=== PATIENT | male | born 1965 | race Caucasian/White ===

== ENCOUNTER → 2016-07-03 | Outpatient (CLI) | payer OTHER ==
[~2016-07-03] MED LIST: SODIUM CHLORIDE 0.9% 250 ML in EMPTY BAG 1 BAG IV PRN; SODIUM CHLORIDE 0.9% 500 ML in EMPTY BAG 1 BAG IV PRN
[2016-07-03 11:38] VITALS: TEMP 98
[2016-07-03 13:00] LABS: CH 32.5; CHCM 33.7; HCT 52.6 % (39.0-53.0); HDW 2.34; HGB 17.6 gm/dL (13.0-17.5); MCH 32.4 pg (25.0-35.0); MCHC 33.4 g/dL (31.0-37.0); MCV 96.9 fL (80.0-100.0); Mean Platelet Volume 6.5; RBC 5.43 m/uL (4.30-5.90); RDW 12.6 % (11.5-15.5); WBC 7.8 k/uL (3.8-10.6)
[2016-07-03 13:40] VITALS: BP 146/93; PULSE 93; RESP 16
== END | disposition home or self-care (01) ==
LOC: PROCWHC3 11:17
PROVIDERS: ATTEND Physician Assistant
DX: E83.119 Hemochromatosis, unspecified (principal)
CPT/HCPCS: 36415; 85027; 99195

== ENCOUNTER → 2016-10-06 | Outpatient (CLI) | payer OTHER ==
[2016-10-06 11:35] VITALS: TEMP 98.1
[2016-10-06 11:37] LABS: CH 32.1; CHCM 33.9; HCT 46.5 % (39.0-53.0); HDW 2.35; MCH 32.7 pg (25.0-35.0); MCHC 34.5 g/dL (31.0-37.0); MCV 94.8 fL (80.0-100.0); Mean Platelet Volume 6.9; RDW 12.6 % (11.5-15.5); WBC 7.4 k/uL (3.8-10.6)
[2016-10-06 12:18] VITALS: BP 137/82; PULSE 75; RESP 16
== END ==
LOC: PROCWHC3 10:59
PROVIDERS: ATTEND Physician Assistant
DX: E83.119 Hemochromatosis, unspecified (principal)
CPT/HCPCS: 85027; 99195

== ENCOUNTER → 2017-01-05 | Outpatient (CLI) | payer OTHER ==
[~2017-01-05] MED LIST changes: -SODIUM CHLORIDE 0.9% 250 ML in EMPTY BAG 1 BAG IV PRN
[2017-01-05 11:21] VITALS: BP 142/90; PULSE 86; RESP 16; TEMP 98.4
[2017-01-05 11:55] LABS: CH 33.3; CHCM 34.2; HCT 50.9 % (39.0-53.0); HDW 2.36; MCH 32.6 pg (25.0-35.0); MCHC 33.3 g/dL (31.0-37.0); MCV 97.7 fL (80.0-100.0); Mean Platelet Volume 7.4; RBC 5.21 m/uL (4.30-5.90); RDW 13.5 % (11.5-15.5); WBC 7.6 k/uL (3.8-10.6)
== END ==
LOC: PROCWHC3 11:05
PROVIDERS: ATTEND Physician Assistant
DX: E83.110 Hereditary hemochromatosis (principal)
CPT/HCPCS: 36415; 85027; 99195

== ENCOUNTER → 2017-04-18 | Outpatient (CLI) | payer OTHER ==
[2017-04-18 10:18] VITALS: BP 156/82; PULSE 80; RESP 16; TEMP 97.7
[2017-04-18 10:33] LABS: CH 32.3; CHCM 33.1; HCT 49.6 % (39.0-53.0); HDW 2.16; HGB 16.5 gm/dL (13.0-17.5); MCH 32.6 pg (25.0-35.0); MCHC 33.3 g/dL (31.0-37.0); Mean Platelet Volume 7.5; RBC 5.06 m/uL (4.30-5.90); RDW 13.8 % (11.5-15.5); WBC 6.8 k/uL (3.8-10.6)
== END ==
LOC: PROCWHC3 09:51
PROVIDERS: ATTEND Physician Assistant
DX: E83.119 Hemochromatosis, unspecified (principal)
CPT/HCPCS: 36415; 85027; 99195

== ENCOUNTER → 2017-08-03 | Outpatient (CLI) | payer OTHER ==
[2017-08-03 11:33] VITALS: RESP 16; TEMP 97.6
[2017-08-03 11:41] LABS: Basophils # (A) 0.1 k/uL (0-0.2); Basophils % (A) 1 %; Eosinophils # (A) 0.3 k/uL (0-0.7); Eosinophils % (A) 4 %; HCT 48.4 % (39.0-53.0); HGB 16.2 gm/dL (13.0-17.5); Lymphocytes # (A) 2.1 k/uL (1.0-4.8); Lymphocytes % (A) 29 %; MCH 31.4 pg (25.0-35.0); MCHC 33.5 g/dL (31.0-37.0); MCV 93.8 fL (80.0-100.0); Monocytes # (A) 0.3 k/uL (0-1.0); Monocytes % (A) 4 %; Neutrophils # (A) 4.4 k/uL (1.3-7.7); Neutrophils % (A) 61 %; Platelet Count 254 k/uL (150-450); RBC 5.16 m/uL (4.30-5.90); RDW 12.7 % (11.5-15.5); WBC 7.2 k/uL (3.8-10.6)
[2017-08-03 12:31] VITALS: BP 145/94; PULSE 97
== END | disposition home or self-care (01) ==
LOC: PROCWHC3 11:21
PROVIDERS: ATTEND Physician Assistant
DX: E83.110 Hereditary hemochromatosis (principal)
CPT/HCPCS: 36415; 85025; 99195

== ENCOUNTER → 2017-11-09 | Outpatient (CLI) | payer OTHER ==
[2017-11-09 11:22] VITALS: RESP 16; TEMP 98.1
[2017-11-09 11:32] LABS: Basophils # (A) 0.1 k/uL (0-0.2); Basophils % (A) 1 %; Eosinophils # (A) 0.6 k/uL (0-0.7); Eosinophils % (A) 7 %; HCT 47.9 % (39.0-53.0); HGB 16.6 gm/dL (13.0-17.5); Lymphocytes # (A) 2.2 k/uL (1.0-4.8); Lymphocytes % (A) 30 %; MCH 32.7 pg (25.0-35.0); MCHC 34.6 g/dL (31.0-37.0); MCV 94.5 fL (80.0-100.0); Mean Platelet Volume 6.9; Monocytes # (A) 0.4 k/uL (0-1.0); Monocytes % (A) 5 %; Neutrophils # (A) 4.2 k/uL (1.3-7.7); Neutrophils % (A) 56 %; Platelet Count 215 k/uL (150-450); RBC 5.07 m/uL (4.30-5.90); RDW 12.4 % (11.5-15.5); WBC 7.5 k/uL (3.8-10.6)
[2017-11-09 12:36] VITALS: BP 131/93; PULSE 91
[2017-11-09 17:13] LABS: Iron Saturation 88.43 (15.00-50.00)
== END | disposition home or self-care (01) ==
LOC: PROCWHC3 11:00
PROVIDERS: ATTEND Physician Assistant
DX: E83.110 Hereditary hemochromatosis (principal)
CPT/HCPCS: 36415; 83540; 83550; 85025; 99195

== ENCOUNTER → 2018-02-15 | Outpatient (CLI) | payer OTHER ==
[2018-02-15 11:43] VITALS: BP 134/94; PULSE 76; RESP 16; TEMP 98.1
[2018-02-15 11:43] LABS: HCT 49.3 % (39.0-53.0); HGB 16.6 gm/dL (13.0-17.5); MCH 31.7 pg (25.0-35.0); MCHC 33.5 g/dL (31.0-37.0); MCV 94.3 fL (80.0-100.0); Mean Platelet Volume 6.9; Platelet Count 261 k/uL (150-450); RBC 5.23 m/uL (4.30-5.90); RDW 12.2 % (11.5-15.5)
[2018-02-15 16:53] LABS: Iron Saturation 71.3 (15.00-50.00)
== END | disposition home or self-care (01) ==
LOC: PROCWHC3 10:45
PROVIDERS: ATTEND Physician Assistant
DX: E83.110 Hereditary hemochromatosis (principal)
CPT/HCPCS: 36415; 82728; 83540; 83550; 85027; 99195

== ENCOUNTER → 2018-06-11 | Outpatient (CLI) | payer OTHER ==
[2018-06-11 11:28] VITALS: RESP 16; TEMP 97.4
[2018-06-11 11:54] LABS: HCT 48.2 % (39.0-53.0); HGB 16.1 gm/dL (13.0-17.5); MCH 31.5 pg (25.0-35.0); MCHC 33.3 g/dL (31.0-37.0); MCV 94.7 fL (80.0-100.0); Platelet Count 245 k/uL (150-450); RBC 5.09 m/uL (4.30-5.90); RDW 12.8 % (11.5-15.5); WBC 7.4 k/uL (3.8-10.6)
[2018-06-11 12:29] VITALS: BP 146/89; PULSE 80
[2018-06-11 17:55] LABS: Iron Saturation 57.44 (15.00-50.00)
== END ==
LOC: PROCWHC3 11:16
PROVIDERS: ATTEND Physician Assistant
DX: E83.110 Hereditary hemochromatosis (principal)
CPT/HCPCS: 36415; 82728; 83540; 83550; 85027; 99195

== ENCOUNTER → 2018-09-13 | Outpatient (CLI) | payer OTHER ==
[~2018-09-13] MED LIST changes: +SODIUM CHLORIDE 0.9% 500 ML 500 ML in EMPTY BAG 1 BAG IV PRN; -SODIUM CHLORIDE 0.9% 500 ML in EMPTY BAG 1 BAG IV PRN
[2018-09-13 11:04] VITALS: RESP 18; TEMP 97.7
[2018-09-13 11:13] LABS: HCT 48.3 % (39.0-53.0); HGB 15.9 gm/dL (13.0-17.5); MCH 31.3 pg (25.0-35.0); MCHC 32.9 g/dL (31.0-37.0); Mean Platelet Volume 6.7; Platelet Count 258 k/uL (150-450); RBC 5.08 m/uL (4.30-5.90); RDW 12.6 % (11.5-15.5); WBC 6.7 k/uL (3.8-10.6)
[2018-09-13 12:03] VITALS: BP 130/88; PULSE 83
[2018-09-13 17:44] LABS: Iron Saturation 53.81 (15.00-50.00)
== END | disposition home or self-care (01) ==
LOC: PROCWHC3 10:50
PROVIDERS: ATTEND Physician Assistant
DX: E83.110 Hereditary hemochromatosis (principal)
CPT/HCPCS: 36415; 82728; 83540; 83550; 85027; 99195

== ENCOUNTER → 2018-12-13 | Outpatient (CLI) | payer OTHER ==
[2018-12-13 11:29] VITALS: RESP 16; TEMP 98.2
[2018-12-13 11:38] LABS: HGB 16.1 gm/dL (13.0-17.5); MCH 31.7 pg (25.0-35.0); MCHC 32.9 g/dL (31.0-37.0); MCV 96.5 fL (80.0-100.0); Mean Platelet Volume 7.1; Platelet Count 240 k/uL (150-450); RBC 5.08 m/uL (4.30-5.90)
[2018-12-13 13:28] VITALS: BP 133/87; PULSE 87
[2018-12-13 23:30] LABS: Iron Saturation 69.33 (15.00-50.00)
== END ==
LOC: PROCWHC3 10:59
PROVIDERS: ATTEND Physician Assistant
DX: E83.119 Hemochromatosis, unspecified (principal)
CPT/HCPCS: 36415; 83540; 83550; 85027; 99195

== ENCOUNTER → 2019-02-14 | Outpatient (CLI) | payer OTHER ==
[2019-02-14 11:22] VITALS: RESP 16; TEMP 98.3
[2019-02-14 11:35] LABS: HCT 44.3 % (39.0-53.0); HGB 15.7 gm/dL (13.0-17.5); MCH 32.4 pg (25.0-35.0); MCHC 35.5 g/dL (31.0-37.0); Mean Platelet Volume 5.8; Platelet Count 228 k/uL (150-450); RBC 4.86 m/uL (4.30-5.90); RDW 12.3 % (11.5-15.5); WBC 7.8 k/uL (3.8-10.6)
[2019-02-14 12:16] VITALS: BP 134/84; PULSE 87
== END | disposition home or self-care (01) ==
LOC: PROCWHC3 09:04
PROVIDERS: ATTEND Physician Assistant
DX: E83.110 Hereditary hemochromatosis (principal)
CPT/HCPCS: 36415; 85027; 99195

== ENCOUNTER → 2019-04-11 | Outpatient (CLI) | payer OTHER ==
[2019-04-11 11:12] VITALS: RESP 16; TEMP 98.2
[2019-04-11 11:26] LABS: HCT 48.1 % (39.0-53.0); HGB 16.3 gm/dL (13.0-17.5); MCHC 33.8 g/dL (31.0-37.0); Mean Platelet Volume 6.1; Platelet Count 249 k/uL (150-450); RBC 4.94 m/uL (4.30-5.90); RDW 12.3 % (11.5-15.5)
[2019-04-11 11:29] LABS: MCV 97.4 fL (80.0-100.0)
[2019-04-11 12:14] VITALS: BP 144/90; PULSE 87
[2019-04-11 16:27] LABS: % Iron Saturation 29.63 (15.00-50.00)
== END ==
LOC: PROCWHC3 10:58
PROVIDERS: ATTEND Physician Assistant
DX: E83.110 Hereditary hemochromatosis (principal)
CPT/HCPCS: 36415; 83540; 83550; 85027; 99195

== ENCOUNTER → 2019-08-08 | Outpatient (CLI) | payer OTHER ==
[2019-08-08 12:06] VITALS: PULSE 79; RESP 16; TEMP 98.2
[2019-08-08 12:24] LABS: HCT 47.2 % (39.0-53.0); HGB 15.9 gm/dL (13.0-17.5); MCH 31.8 pg (25.0-35.0); MCHC 33.7 g/dL (31.0-37.0); MCV 94.4 fL (80.0-100.0); Mean Platelet Volume 7.2; Platelet Count 253 k/uL (150-450); RBC 5.01 m/uL (4.30-5.90); RDW 12.6 % (11.5-15.5); WBC 7.7 k/uL (3.8-10.6)
[2019-08-08 13:20] VITALS: BP 111/78
[2019-08-08 19:08] LABS: % Iron Saturation 40.89 (15.00-50.00)
== END | disposition home or self-care (01) ==
LOC: PROCWHC3 11:13
PROVIDERS: ATTEND Physician Assistant
DX: E83.110 Hereditary hemochromatosis (principal)
CPT/HCPCS: 83540; 83550; 85027; 99195

== ENCOUNTER → 2019-10-10 | Outpatient (CLI) | payer OTHER ==
[2019-10-10 11:02] VITALS: RESP 16; TEMP 98.6
[2019-10-10 12:10] LABS: HCT 50.2 % (39.0-53.0); HGB 16.5 gm/dL (13.0-17.5); MCH 31.6 pg (25.0-35.0); MCHC 32.9 g/dL (31.0-37.0); MCV 95.9 fL (80.0-100.0); Platelet Count 250 k/uL (150-450); RBC 5.23 m/uL (4.30-5.90); RDW 12.4 % (11.5-15.5); WBC 8.6 k/uL (3.8-10.6)
[2019-10-10 12:44] VITALS: BP 136/81; PULSE 70
[2019-10-10 19:50] LABS: % Iron Saturation 47.88 (15.00-50.00)
== END | disposition home or self-care (01) ==
LOC: PROCWHC3 10:48
PROVIDERS: ATTEND Physician Assistant
DX: E83.110 Hereditary hemochromatosis (principal)
CPT/HCPCS: 36415; 83540; 83550; 85027; 99195

== ENCOUNTER → 2019-12-05 | Outpatient (CLI) | payer OTHER ==
[2019-12-05 11:08] VITALS: RESP 18; TEMP 97.9
[2019-12-05 11:54] LABS: HGB 15.7 gm/dL (13.0-17.5); MCHC 32.7 g/dL (31.0-37.0); MCV 94.7 fL (80.0-100.0); Mean Platelet Volume 7.3; Platelet Count 246 k/uL (150-450); RBC 5.07 m/uL (4.30-5.90); RDW 12.4 % (11.5-15.5)
[2019-12-05 12:32] VITALS: BP 147/76; PULSE 115
[2019-12-05 21:00] LABS: % Iron Saturation 66.27 (15.00-50.00)
== END | disposition home or self-care (01) ==
LOC: PROCWHC3 10:52
PROVIDERS: ATTEND Physician Assistant
DX: E83.110 Hereditary hemochromatosis (principal)
CPT/HCPCS: 36415; 83540; 83550; 85027; 99195

== ENCOUNTER → 2020-01-30 | Outpatient (CLI) | payer OTHER ==
[2020-01-30 11:03] VITALS: PULSE 86; RESP 16
[2020-01-30 11:17] LABS: Basophils # (A) 0.2 k/uL (0-0.2); Basophils % (A) 2 %; Eosinophils # (A) 0.4 k/uL (0-0.7); Eosinophils % (A) 4 %; HCT 50.6 % (39.0-53.0); HGB 16.7 gm/dL (13.0-17.5); Lymphocytes # (A) 2.6 k/uL (1.0-4.8); Lymphocytes % (A) 30 %; MCV 93.9 fL (80.0-100.0); Mean Platelet Volume 7.4; Monocytes # (A) 0.3 k/uL (0-1.0); Monocytes % (A) 4 %; Neutrophils % (A) 59 %; Platelet Count 271 k/uL (150-450); RBC 5.38 m/uL (4.30-5.90); RDW 12.6 % (11.5-15.5); WBC 8.6 k/uL (3.8-10.6)
[2020-01-30 11:48] VITALS: BP 146/86; TEMP 98.1
[2020-01-30 16:40] LABS: % Iron Saturation 28.25 (15.00-50.00)
[2020-01-30 16:48] LABS: Ferritin 25.5 ng/mL (22.0-322.0)
== END | disposition home or self-care (01) ==
LOC: PROCWHC3 10:50
PROVIDERS: ATTEND Physician Assistant
DX: E83.119 Hemochromatosis, unspecified (principal)
CPT/HCPCS: 36415; 82728; 83540; 83550; 85025; 99195

== ENCOUNTER → 2020-04-23 | Outpatient (CLI) | payer OTHER ==
[2020-04-23 11:13] VITALS: RESP 16; TEMP 98.4
[2020-04-23 11:26] LABS: HCT 49.1 % (39.0-53.0); HGB 16.2 gm/dL (13.0-17.5); MCH 30.6 pg (25.0-35.0); MCV 92.8 fL (80.0-100.0); Mean Platelet Volume 7.3; Platelet Count 240 k/uL (150-450); RBC 5.29 m/uL (4.30-5.90); RDW 12.7 % (11.5-15.5); WBC 8.5 k/uL (3.8-10.6)
[2020-04-23 12:11] VITALS: BP 161/79; PULSE 92
[2020-04-23 21:02] LABS: % Iron Saturation 60.73 (15.00-50.00)
== END | disposition home or self-care (01) ==
LOC: PROCWHC3 10:56
PROVIDERS: ATTEND Physician Assistant
DX: E83.119 Hemochromatosis, unspecified (principal)
CPT/HCPCS: 36415; 83540; 83550; 85027; 99195

== ENCOUNTER → 2020-07-23 | Outpatient (CLI) | payer OTHER ==
[2020-07-23 11:05] VITALS: RESP 18; TEMP 98.4
[2020-07-23 11:20] LABS: HCT 46.8 % (39.0-53.0); HGB 16.3 gm/dL (13.0-17.5); MCH 32.5 pg (25.0-35.0); MCHC 34.8 g/dL (31.0-37.0); MCV 93.6 fL (80.0-100.0); Mean Platelet Volume 6.8; Platelet Count 249 k/uL (150-450); RDW 12.4 % (11.5-15.5)
[2020-07-23 12:16] VITALS: BP 148/103; PULSE 76
[2020-07-24 00:46] LABS: % Iron Saturation 33.47 (15.00-50.00)
[2020-07-24 00:54] LABS: Ferritin 46.8 ng/mL (22.0-322.0)
== END ==
LOC: PROCWHC3 10:52
PROVIDERS: ATTEND Physician Assistant
DX: E83.110 Hereditary hemochromatosis (principal); F17.210 Nicotine dependence, cigarettes, uncomplicated
CPT/HCPCS: 36415; 82728; 83540; 83550; 85027; 99195

== ENCOUNTER → 2020-10-29 | Outpatient (CLI) | payer OTHER ==
[2020-10-29 11:39] LABS: HCT 48.6 % (39.0-53.0); HGB 16.6 gm/dL (13.0-17.5); MCH 31.8 pg (25.0-35.0); MCHC 34.2 g/dL (31.0-37.0); MCV 93.1 fL (80.0-100.0); Platelet Count 230 k/uL (150-450); RBC 5.22 m/uL (4.30-5.90); RDW 12.3 % (11.5-15.5); WBC 7.9 k/uL (3.8-10.6)
[2020-10-29 12:05] VITALS: PULSE 80; RESP 16; TEMP 98.2
[2020-10-29 12:07] VITALS: BP 137/88
[2020-10-29 17:40] LABS: % Iron Saturation 34.12 (15.00-50.00)
[2020-10-29 17:48] LABS: Ferritin 47.9 ng/mL (22.0-322.0)
== END ==
LOC: PROCWHC3 10:56
PROVIDERS: ATTEND Physician Assistant
DX: E83.110 Hereditary hemochromatosis (principal); Z87.891 Personal history of nicotine dependence
CPT/HCPCS: 36415; 82728; 83540; 83550; 85027; 99195

== ENCOUNTER → 2021-02-04 | Outpatient (CLI) | payer OTHER ==
[2021-02-04 11:23] VITALS: TEMP 98.4
[2021-02-04 11:26] LABS: HCT 46.5 % (39.0-53.0); HGB 15.8 gm/dL (13.0-17.5); MCH 32.5 pg (25.0-35.0); MCHC 34.1 g/dL (31.0-37.0); MCV 95.5 fL (80.0-100.0); Mean Platelet Volume 7.4; Platelet Count 249 k/uL (150-450); RBC 4.87 m/uL (4.30-5.90); RDW 12.2 % (11.5-15.5); WBC 7.9 k/uL (3.8-10.6)
[2021-02-04 11:49] VITALS: BP 148/106; PULSE 87; RESP 16
== END ==
LOC: PROCWHC3 11:16
PROVIDERS: ATTEND Internal Medicine Gastroenterology
DX: E83.110 Hereditary hemochromatosis (principal); Z87.891 Personal history of nicotine dependence
CPT/HCPCS: 36415; 85027; 99195

== ENCOUNTER → 2021-09-23 | Outpatient (CLI) | payer OTHER ==
[2021-09-23 11:08] VITALS: RESP 18; TEMP 98.1
[2021-09-23 11:21] LABS: MCH 31.8 pg (25.0-35.0); MCHC 32.7 g/dL (31.0-37.0); MCV 97.3 fL (80.0-100.0); Mean Platelet Volume 7.5; Platelet Count 245 k/uL (150-450); RBC 4.73 m/uL (4.30-5.90); RDW 12.8 % (11.5-15.5); WBC 7.4 k/uL (3.8-10.6)
[2021-09-23 11:51] VITALS: BP 173/84; PULSE 92
== END | disposition home or self-care (01) ==
LOC: PROCWHC3 10:50
PROVIDERS: ATTEND Internal Medicine Gastroenterology
DX: E83.110 Hereditary hemochromatosis (principal)
CPT/HCPCS: 36415; 85027; 99195

== ENCOUNTER → 2022-01-31 | Outpatient (CLI) | payer OTHER ==
[2022-01-31 11:12] VITALS: PULSE 78; RESP 15; TEMP 98.4
[2022-01-31 11:34] LABS: HCT 44.8 % (39.0-53.0); HGB 14.6 gm/dL (13.0-17.5); MCH 31.2 pg (25.0-35.0); MCHC 32.5 g/dL (31.0-37.0); MCV 95.9 fL (80.0-100.0); Mean Platelet Volume 7.5; Platelet Count 239 k/uL (150-450); RBC 4.68 m/uL (4.30-5.90); RDW 12.6 % (11.5-15.5); WBC 7.8 k/uL (3.8-10.6)
[2022-01-31 13:02] VITALS: BP 161/101
== END ==
LOC: PROCWHC3 10:55
PROVIDERS: ATTEND Internal Medicine Gastroenterology
DX: E83.110 Hereditary hemochromatosis (principal); Z87.891 Personal history of nicotine dependence
CPT/HCPCS: 36415; 85027; 99195

== ENCOUNTER → 2022-05-16 | Outpatient (CLI) | payer OTHER ==
[2022-05-16 11:12] VITALS: RESP 16; TEMP 97.5
[2022-05-16 11:14] LABS: HCT 47.2 % (39.0-53.0); HGB 16.2 gm/dL (13.0-17.5); MCH 31.9 pg (25.0-35.0); MCHC 34.4 g/dL (31.0-37.0); MCV 92.5 fL (80.0-100.0); Mean Platelet Volume 7.8; Platelet Count 246 k/uL (150-450); RDW 12.4 % (11.5-15.5); WBC 8.5 k/uL (3.8-10.6)
[2022-05-16 11:45] VITALS: BP 151/84; PULSE 98
== END ==
LOC: PROCWHC3 10:58
PROVIDERS: ATTEND Internal Medicine Gastroenterology
DX: E83.119 Hemochromatosis, unspecified (principal); Z87.891 Personal history of nicotine dependence
CPT/HCPCS: 36415; 85027; 99195

== ENCOUNTER → 2022-08-04 | Outpatient (CLI) | payer OTHER ==
[2022-08-04 11:05] VITALS: RESP 16; TEMP 97.9
[2022-08-04 11:18] LABS: HCT 46.6 % (39.0-53.0); HGB 15.9 gm/dL (13.0-17.5); MCH 32.2 pg (25.0-35.0); MCV 94.5 fL (80.0-100.0); Mean Platelet Volume 7.3; Platelet Count 262 k/uL (150-450); RBC 4.93 m/uL (4.30-5.90); RDW 12.2 % (11.5-15.5); WBC 9.6 k/uL (3.8-10.6)
[2022-08-04 11:54] VITALS: BP 125/77; PULSE 94
== END ==
LOC: PROCWHC3 10:56
PROVIDERS: ATTEND Nurse Practitioner Family
DX: E83.110 Hereditary hemochromatosis (principal); Z87.891 Personal history of nicotine dependence
CPT/HCPCS: 36415; 85027; 99195

== ENCOUNTER → 2022-11-03 | Outpatient (CLI) | payer OTHER ==
[2022-11-03 11:29] VITALS: BP 123/79; PULSE 96; RESP 16; TEMP 98.1
[2022-11-03 11:32] LABS: Basophils # (A) 0.1 k/uL (0-0.2); Basophils % (A) 1 %; Eosinophils # (A) 0.5 k/uL (0-0.7); Eosinophils % (A) 5 %; HCT 46.4 % (39.0-53.0); HGB 15.7 gm/dL (13.0-17.5); Lymphocytes # (A) 3.8 k/uL (1.0-4.8); Lymphocytes % (A) 37 %; MCV 94.1 fL (80.0-100.0); Mean Platelet Volume 7.3; Monocytes # (A) 0.5 k/uL (0-1.0); Monocytes % (A) 5 %; Neutrophils # (A) 5.1 k/uL (1.3-7.7); Neutrophils % (A) 51 %; Platelet Count 264 k/uL (150-450); RBC 4.93 m/uL (4.30-5.90); WBC 10.1 k/uL (3.8-10.6)
[2022-11-03 11:42] LABS: Albumin 4.2 g/dL (3.5-5.0); Bilirubin, Delta 0.2 mg/dL (0.0-0.2); Bilirubin,Unconjugated 0.2 mg/dL (0.0-1.1); Total Bilirubin 0.4 mg/dL (0.2-1.3)
[2022-11-03 16:11] LABS: % Iron Saturation 31.75 (15.00-50.00); Ferritin 91.8 ng/mL (22.0-322.0)
== END ==
LOC: PROCWHC3 10:50
PROVIDERS: ATTEND Nurse Practitioner Family
DX: E83.110 Hereditary hemochromatosis (principal)
CPT/HCPCS: 36415; 80076; 82728; 83540; 83550; 85025; 99195

== ENCOUNTER → 2023-05-25 | Outpatient (CLI) | payer OTHER ==
[2023-05-25 07:50] VITALS: RESP 16; TEMP 98.2
[2023-05-25 07:52] LABS: HCT 47.9 % (39.0-53.0); MCH 31.7 pg (25.0-35.0); MCHC 33.4 g/dL (31.0-37.0); MCV 94.8 fL (80.0-100.0); Mean Platelet Volume 7.4; Platelet Count 268 k/uL (150-450); RBC 5.05 m/uL (4.30-5.90); RDW 12.1 % (11.5-15.5); WBC 9.2 k/uL (3.8-10.6)
[2023-05-25 08:12] LABS: Albumin 4.2 g/dL (3.5-5.0); Bilirubin, Delta 0.2 mg/dL (0.0-0.2); Bilirubin,Unconjugated 0.2 mg/dL (0.0-1.1); Total Bilirubin 0.4 mg/dL (0.2-1.3); Total Protein 7.1 g/dL (6.3-8.2)
[2023-05-25 08:42] VITALS: BP 117/73; PULSE 82
[2023-05-25 11:12] LABS: % Iron Saturation 36.92 (15.00-50.00)
== END ==
LOC: PROCWHC3 07:23
PROVIDERS: ATTEND Nurse Practitioner Family
DX: E83.110 Hereditary hemochromatosis (principal)
CPT/HCPCS: 36415; 80076; 82728; 83540; 83550; 85027; 99195

== ENCOUNTER → 2023-08-31 | Outpatient (CLI) | payer OTHER ==
[2023-08-31 07:52] LABS: HCT 51.5 % (39.0-53.0); HGB 17.3 gm/dL (13.0-17.5); MCH 32.3 pg (25.0-35.0); MCHC 33.7 g/dL (31.0-37.0); MCV 95.9 fL (80.0-100.0); Mean Platelet Volume 7.8; Platelet Count 266 k/uL (150-450); RBC 5.37 m/uL (4.30-5.90); RDW 12.7 % (11.5-15.5); WBC 9.5 k/uL (3.8-10.6)
[2023-08-31 08:00] VITALS: RESP 16; TEMP 97.8
[2023-08-31 08:08] LABS: Albumin 4.2 g/dL (3.5-5.0); Bilirubin, Delta 0.2 mg/dL (0.0-0.2); Bilirubin,Unconjugated 0.1 mg/dL (0.0-1.1); Total Bilirubin 0.3 mg/dL (0.2-1.3); Total Protein 7.2 g/dL (6.3-8.2)
[2023-08-31 08:42] VITALS: BP 140/90; PULSE 89
[2023-08-31 12:06] LABS: % Iron Saturation 41.91 (15.00-50.00)
== END ==
LOC: PROCWHC3 07:25
PROVIDERS: ATTEND Nurse Practitioner Family
DX: E83.10 Disorder of iron metabolism, unspecified (principal)
CPT/HCPCS: 36415; 80076; 82728; 83540; 83550; 85027; 99195

== ENCOUNTER → 2023-11-30 | Outpatient (CLI) | payer OTHER ==
[2023-11-30 07:40] VITALS: RESP 16; TEMP 98.3
[2023-11-30 07:48] LABS: HGB 15.7 gm/dL (13.0-17.5); MCHC 32.6 g/dL (31.0-37.0); Mean Platelet Volume 7.6; Platelet Count 258 k/uL (150-450); RDW 12.4 % (11.5-15.5); WBC 9.4 k/uL (3.8-10.6)
[2023-11-30 08:12] VITALS: BP 156/89; PULSE 80
== END ==
LOC: PROCWHC3 07:08
PROVIDERS: ATTEND Nurse Practitioner Family
DX: E83.110 Hereditary hemochromatosis (principal)
CPT/HCPCS: 36415; 85027; 99195

== ENCOUNTER → 2024-02-29 | Outpatient (CLI) | payer OTHER ==
[2024-02-29 07:25] VITALS: RESP 16; TEMP 98.1
[2024-02-29 07:37] LABS: Basophils # (A) 0.1 k/uL (0-0.2); Basophils % (A) 1 %; Eosinophils # (A) 0.3 k/uL (0-0.7); Eosinophils % (A) 4 %; HCT 48.6 % (39.0-53.0); HGB 16.8 gm/dL (13.0-17.5); Lymphocytes % (A) 34 %; MCH 32.9 pg (25.0-35.0); MCHC 34.6 g/dL (31.0-37.0); MCV 95.3 fL (80.0-100.0); Mean Platelet Volume 7.9; Monocytes # (A) 0.3 k/uL (0-1.0); Monocytes % (A) 4 %; Neutrophils % (A) 56 %; Platelet Count 248 k/uL (150-450); RBC 5.11 m/uL (4.30-5.90); RDW 12.6 % (11.5-15.5); WBC 8.8 k/uL (3.8-10.6)
[2024-02-29 08:11] VITALS: BP 138/88; PULSE 84
[2024-02-29 08:30] LABS: Albumin 4.2 g/dL (3.5-5.0); Bilirubin, Delta 0.2 mg/dL (0.0-0.2); Bilirubin,Unconjugated 0.2 mg/dL (0.0-1.1); Total Bilirubin 0.4 mg/dL (0.2-1.3)
[2024-02-29 15:20] LABS: % Iron Saturation 34.19 (15.00-50.00)
== END ==
LOC: PROCWHC3 07:05
PROVIDERS: ATTEND Nurse Practitioner Family
DX: E83.119 Hemochromatosis, unspecified (principal)
CPT/HCPCS: 36415; 80076; 82728; 83540; 83550; 85025; 99195

== ENCOUNTER → 2024-05-30 | Outpatient (CLI) | payer OTHER ==
[~2024-05-30] MED LIST changes: +SODIUM CHLORIDE 0.9% 250 ML in EMPTY BAG 1 BAG IV PRN
[2024-05-30 07:22] VITALS: PULSE 80; RESP 16; TEMP 97.6
[2024-05-30 07:49] LABS: Basophils # (A) 0.1 k/uL (0-0.2); Basophils % (A) 1 %; Eosinophils # (A) 0.4 k/uL (0-0.7); Eosinophils % (A) 5 %; HCT 48.8 % (39.0-53.0); HGB 16.7 gm/dL (13.0-17.5); Lymphocytes % (A) 36 %; MCH 32.3 pg (25.0-35.0); MCHC 34.1 g/dL (31.0-37.0); MCV 94.6 fL (80.0-100.0); Mean Platelet Volume 7.6; Monocytes # (A) 0.4 k/uL (0-1.0); Monocytes % (A) 6 %; Neutrophils % (A) 50 %; Platelet Count 235 k/uL (150-450); RBC 5.16 m/uL (4.30-5.90); RDW 12.4 % (11.5-15.5); WBC 8.1 k/uL (3.8-10.6)
[2024-05-30 08:13] VITALS: BP 130/87
[2024-05-30 10:56] LABS: % Iron Saturation 52.9 (15.00-50.00)
== END ==
LOC: PROCWHC3 07:05
PROVIDERS: ATTEND Nurse Practitioner Family
DX: E83.119 Hemochromatosis, unspecified (principal)
CPT/HCPCS: 36415; 82728; 83540; 83550; 85025; 99195

== ENCOUNTER → 2024-08-29 | Outpatient (CLI) | payer OTHER ==
[2024-08-29 07:34] VITALS: RESP 16; TEMP 97.9
[2024-08-29 07:53] LABS: Basophils # (A) 0.09 10*3/uL (0.00-0.10); Basophils % (A) 0.9 %; Eosinophils # (A) 0.42 10*3/uL (0.04-0.35); Eosinophils % (A) 4.2 %; HCT 46.4 % (39.6-50.0); HGB 16.1 g/dL (13.0-17.0); Lymphocytes # (A) 4.07 10*3/uL (0.90-5.00); Lymphocytes % (A) 41.1 %; MCH 32.5 pg (27.0-32.0); MCHC 34.7 g/dL (32.0-37.0); MCV 93.7 fL (80.0-97.0); Mean Platelet Volume 10.4 fL (9.5-12.2); Monocytes # (A) 0.65 10*3/uL (0.20-1.00); Monocytes % (A) 6.6 %; Neutrophils # (A) 4.66 10*3/uL (1.80-7.70); Neutrophils % (A) 47.1 %; Platelet Count 250 10*3/uL (140-440); RBC 4.95 10*6/uL (4.40-5.60); RDW 11.6 % (11.5-14.5)
[2024-08-29 08:01] LABS: Albumin 4.2 g/dL (3.5-5.0); Bilirubin, Delta 0.2 mg/dL (0.0-0.2); Bilirubin,Unconjugated 0.2 mg/dL (0.0-1.1); Total Bilirubin 0.4 mg/dL (0.2-1.3); Total Protein 6.9 g/dL (6.3-8.2)
[2024-08-29 08:16] VITALS: BP 135/83; PULSE 90
[2024-08-29 11:41] LABS: % Iron Saturation 42.35 (15.00-50.00)
== END ==
LOC: PROCWHC3 07:06
PROVIDERS: ATTEND Nurse Practitioner Family
DX: E83.110 Hereditary hemochromatosis (principal)
CPT/HCPCS: 36415; 80076; 82728; 83540; 83550; 85025; 99195